=== PATIENT | female | born 1990 | race African-American/Black ===

== ENCOUNTER 2017-11-07 04:37 | Emergency (ER) | payer OTHER ==
[~2017-11-07] VITALS: Ht 162.6 cm; Wt 74.0 kg
[~2017-11-07 04:37] MED LIST: ALEVE220 MG PO; AMOXICILLIN500 MG PO; AUGMENTIN875 MG OR; DENIES CURRENT MEDS; DIFLUCAN150 MG PO; FERR SULFATE325 MG PO; FLAGYL ER750 MG PO; FLEXERIL OR; LORTAB 7.57.5 MG PO; MONISTAT1 VA; NAPROSYN500 MG PO; NO HOME MEDS; PERI-COLACE1 TAB PO; PREDNISONE20 MG OR; PRENATA3 PO; RANITIDINE150 M1 PO; ROBITUSSIN DM OR; TAPAZOLE10 MG PO; TRIAMCINOLON0.51 EX; TYLENOL325 MG PO; ULTRAM50 M1 OR; VENLAFAXINE HCL75 M1 PO; VISTARIL 50MG C50 M1 PO; ZYRTEC10 MG OR
[2017-11-07] MEDS ORDERED: AFRIN 12 HOUR0.05 % (05:11)
[2017-11-07 05:26] VITALS: BP 113/77
== END 2017-11-07 05:40 | disposition home or self-care (01) | DRG 153 ==
LOC: ED 04:37
DX: J31.0 Chronic rhinitis (principal); J34.89 Other specified disorders of nose and nasal sinuses; R09.81 Nasal congestion